=== PATIENT | female | born 1960 | race Caucasian/White ===

== ENCOUNTER 2025-01-11 06:20 | Observation (INO) ==
[2024-12-30 10:50] LABS: ALT/SGPT 25 U/L (<40); AST/SGOT 21 U/L (<32); Albumin 4.1 gm/dL (3.2-5.2); Albumin/Globulin Ratio 1.6 (1.0-2.3); Alkaline Phosphatase 112 U/L (39-117); Anion Gap 12.0 (8.0-16.0); Bilirubin,Total 0.2 mg/dL (0.1-1.0); Blood Urea Nitrogen 17 mg/dL (8-23); Calcium 9.4 mg/dL (8.6-10.4); Carbon Dioxide 25 mmol/L (22-30); Chloride 103 mmol/L (96-108); Globulin 2.5 gm/dL (2.2-3.7); Glucose 101 mg/dL (70-105); Potassium 3.6 mmol/L (3.3-5.1); Sodium 140 mmol/L (133-145)
[2024-12-30 12:02] LABS: Basophils # (Auto) 0.06 K/mcL (0.00-0.30); Basophils % (Auto) 0.9 % (0.0-2.0); Eosinophils # (Auto) 0.22 K/mcL (0.00-0.70); Eosinophils % (Auto) 3.1 % (0.0-7.0); Hematocrit 37.4 % (34.1-44.9); Hemoglobin 12.3 g/dL (11.2-15.7); Lymphocytes # (Auto) 2.01 K/mcL (1.50-4.80); Lymphocytes % (Auto) 28.7 % (15.5-49.0); Mean Corpuscular HGB Conc 32.9 g/dL (31.0-36.0); Monocytes # (Auto) 0.62 K/mcL (0.10-0.90); Monocytes % (Auto) 8.9 % (1.0-12.0); Neutrophils % (Auto) 58.3 % (38.0-78.0); Platelet Count 286 K/mcL (140-440); RBC 3.67 M/mcL (3.59-5.38); WBC 7.0 K/mcL (4.5-11.0)
[2024-12-30 12:34] LABS: INR 0.8 (0.9-1.1); Prothrombin Time 11.8 sec (11.9-14.5)
[2025-01-11] MEDS ORDERED: fentaNYL 100 MCG/2 ML VIAL ONE (07:08)
[2025-01-11] MEDS ORDERED: PROPOFOL 200 MG/20 ML VIAL IV ONE (07:08)
[2025-01-11] MEDS ORDERED: LIDOCAINE 2% PF 5 ML VIAL ONE ×2 (07:13→07:59)
[2025-01-11] MEDS ORDERED: ROCURONIUM 10 MG/ML ML IV ONE ×2 (07:14→08:48)
[2025-01-11] MEDS ORDERED: MAGNESIUM SULFATE 2 GM/50 ML BAG IV ONE ×2 (07:14→07:58)
[2025-01-11] MEDS ORDERED: FAMOTIDINE/PF 20 MG/2 ML VIAL IV ONE (07:14)
[2025-01-11] MEDS ORDERED: GLYCOPYRROLATE 0.2 MG/ML VIAL IV ONE (07:14)
[2025-01-11] MEDS ORDERED: SUCCINYLCHOLINE 200 MG/10 ML VIAL IV ONE (07:14)
[2025-01-11] MEDS ORDERED: DEXAMETHASONE 10 MG/ML VIAL ONE (07:14)
[2025-01-11] MEDS ORDERED: ONDANSETRON 4 MG/2 ML VIAL ONE (07:14)
[2025-01-11] MEDS: ceFAZolin 2 GM in DEXTROSE 5% IN WATER 50 ML IV SCH (07:23)
[2025-01-11] MEDS ORDERED: SUGAMMADEX SODIUM 200 MG/2 ML VIAL IV ONE ×2 (07:49→09:08)
[2025-01-11] MEDS ORDERED: HYDROmorphone 0.5 MG/0.5 ML SYRINGE ONE ×2 (07:59→08:48)
[2025-01-11] MEDS ORDERED: ALBUTEROL SULFATE 60 PUFF INHALER INH PRN (09:40)
[2025-01-11] MEDS ORDERED: NALOXONE HCL 0.4 MG/ML VIAL IV PRN (09:56)
[2025-01-11] MEDS ORDERED: BENZOCAINE/MENTHOL 1 LOZENGE PO PRN (09:56)
[2025-01-11] MEDS ORDERED: IPRATROPIUM/ALBUTEROL 3 ML AMPUL.NEB NEB PRN (09:56)
[2025-01-11] MEDS: HYDROmorphone 0.5 MG/0.5 ML SYRINGE IV PRN ×2 (09:56→10:07)
[2025-01-11] MEDS ORDERED: LACTATED RINGERS 250 ML IV PRN (09:56)
[2025-01-11] MEDS ORDERED: MEPERIDINE 25 MG/ML VIAL IV PRN (09:56)
[2025-01-11] MEDS ORDERED: fentaNYL 100 MCG/2 ML VIAL IV PRN (09:56)
[2025-01-11] MEDS ORDERED: ONDANSETRON 4 MG/2 ML VIAL IV PRN (09:56)
[2025-01-11] MEDS ORDERED: CYCLOBENZAPRINE 10 MG TABLET PO PRN (10:01)
[2025-01-11] MEDS: ACETAMINOPHEN 1,000 MG/100 ML BAG IV ONE (10:04)
[2025-01-11] MEDS: METHOCARBAMOL 1,000 MG/10 ML VIAL IV PRN (10:12)
[2025-01-11] MEDS: ONDANSETRON 4 MG/2 ML VIAL IV PRN (10:13)
[2025-01-11] MEDS: 0.9 % SODIUM CHLORIDE 1,000 ML IV SCH (10:37)
[2025-01-11] MEDS: HYDROmorphone 0.5 MG/0.5 ML SYRINGE ONE (10:38)
[2025-01-11] MEDS: LACTATED RINGERS 1,000 ML IV SCH (10:38)
[2025-01-11] MEDS: 0.9 % SODIUM CHLORIDE 10 ML SYRINGE IV SCH (13:00)
[2025-01-11] MEDS: BACLOFEN 10 MG TABLET PO SCH (14:20)
[2025-01-11] MEDS ORDERED: HYDROcodone/APAP 10/325MG TABLET PO PRN (16:17)
[2025-01-11] MEDS: ACETAMINOPHEN 1,000 MG/100 ML BAG IV SCH (17:06)
[2025-01-12 06:11] LABS: Basophils # (Auto) 0.04 K/mcL (0.00-0.30); Basophils % (Auto) 0.4 % (0.0-2.0); Eosinophils # (Auto) 0.07 K/mcL (0.00-0.70); Eosinophils % (Auto) 0.7 % (0.0-7.0); Hematocrit 32.7 % (34.1-44.9); Hemoglobin 10.8 g/dL (11.2-15.7); Lymphocytes # (Auto) 1.88 K/mcL (1.50-4.80); Lymphocytes % (Auto) 18.0 % (15.5-49.0); Mean Corpuscular HGB Conc 33.0 g/dL (31.0-36.0); Monocytes # (Auto) 0.96 K/mcL (0.10-0.90); Monocytes % (Auto) 9.2 % (1.0-12.0); Neutrophils % (Auto) 71.6 % (38.0-78.0); Platelet Count 279 K/mcL (140-440); RBC 3.20 M/mcL (3.59-5.38); WBC 10.5 K/mcL (4.5-11.0)
[2025-01-12 06:15] LABS: ALT/SGPT 118 U/L (<40); AST/SGOT 100 U/L (<32); Albumin 3.4 gm/dL (3.2-5.2); Albumin/Globulin Ratio 1.5 (1.0-2.3); Alkaline Phosphatase 100 U/L (39-117); Anion Gap 9.0 (8.0-16.0); Bilirubin,Direct < 0.2 mg/dL (0-0.3); Bilirubin,Total 0.3 mg/dL (0.1-1.0); Blood Urea Nitrogen 11 mg/dL (8-23); Calcium 8.9 mg/dL (8.6-10.4); Carbon Dioxide 27 mmol/L (22-30); Chloride 102 mmol/L (96-108); Globulin 2.3 gm/dL (2.2-3.7); Glucose 104 mg/dL (70-105); Phosphorous 3.4 mg/dL (2.5-4.5); Potassium 3.8 mmol/L (3.3-5.1); Sodium 138 mmol/L (133-145); Triglycerides 93 mg/dL (<150); Uric Acid 4.2 mg/dL (2.5-8.0)
[2025-01-12] MEDS: LEVOTHYROXINE 125 MCG TABLET PO SCH (06:43)
[2025-01-12] MEDS: OMEPRAZOLE 20 MG CAPSULE PO ONE (08:10)
[2025-01-12] MEDS: buPROPion 150 MG TAB.XL.24H PO SCH (08:13)
[2025-01-12] MEDS ORDERED: buPROPion 150 MG TAB.XL.24H PO SCH (09:00)
[2025-01-12] MEDS: OMEPRAZOLE 20 MG CAPSULE PO SCH (09:07)
[2025-01-12] MEDS ORDERED: OMEPRAZOLE 20 MG CAPSULE PO SCH (17:00)
[2025-01-12] MEDS: POLYETHYLENE GLYCOL 3350 17 GM PACKET PO SCH (20:21)
[2025-01-13 06:40] LABS: ALT/SGPT 392 U/L (<40); AST/SGOT 480 U/L (<32); Albumin 3.3 gm/dL (3.2-5.2); Albumin/Globulin Ratio 1.4 (1.0-2.3); Alkaline Phosphatase 224 U/L (39-117); Anion Gap 10.0 (8.0-16.0); Bilirubin,Direct 0.4 mg/dL (<0.3); Bilirubin,Total 0.6 mg/dL (0.1-1.0); Blood Urea Nitrogen 7 mg/dL (8-23); Calcium 8.9 mg/dL (8.6-10.4); Carbon Dioxide 25 mmol/L (22-30); Chloride 102 mmol/L (96-108); Globulin 2.3 gm/dL (2.2-3.7); Glucose 104 mg/dL (70-105); Phosphorous 3.0 mg/dL (2.5-4.5); Potassium 3.6 mmol/L (3.3-5.1); Sodium 137 mmol/L (133-145); Triglycerides 89 mg/dL (<150); Uric Acid 3.8 mg/dL (2.5-8.0)
[2025-01-13 06:45] LABS: Basophils # (Auto) 0.03 K/mcL (0.00-0.30); Basophils % (Auto) 0.3 % (0.0-2.0); Eosinophils # (Auto) 0.07 K/mcL (0.00-0.70); Eosinophils % (Auto) 0.8 % (0.0-7.0); Hematocrit 33.4 % (34.1-44.9); Hemoglobin 11.1 g/dL (11.2-15.7); Lymphocytes # (Auto) 1.01 K/mcL (1.50-4.80); Lymphocytes % (Auto) 11.7 % (15.5-49.0); Mean Corpuscular HGB Conc 33.2 g/dL (31.0-36.0); Monocytes # (Auto) 0.86 K/mcL (0.10-0.90); Monocytes % (Auto) 9.9 % (1.0-12.0); Neutrophils % (Auto) 77.1 % (38.0-78.0); Platelet Count 263 K/mcL (140-440); RBC 3.26 M/mcL (3.59-5.38); WBC 8.7 K/mcL (4.5-11.0)
[2025-01-13] MEDS: FLUCONAZOLE 100 MG TABLET PO SCH (08:08)
[2025-01-13 11:14] VITALS: TEMP 98.3; O2SAT 94
== END 2025-01-13 13:23 | disposition home or self-care (01) ==
LOC: SUR 06:20 → MEDSUR 10:24 → INTOOBSV 01-12 16:58
PROVIDERS: ADMIT Family Medicine Adult Medicine; ATTEND Family Medicine Adult Medicine